=== PATIENT | female | born 1980 | race Caucasian/White ===

== ENCOUNTER 2019-01-01 00:23 | Emergency (ER) | payer MEDICAID ==
[~2019-01-01] VITALS: Ht 167.6 cm; Wt 102.7 kg
[2019-01-01 00:25] VITALS: BP 145/75
--- NOTE | 2019-01-01 00:56 | NUR ---
pt ambulates from lobby to room with steady gait.
[2019-01-01] MEDS ORDERED: HYDROcodone/APAP 10/325 MG TABLET ONE (01:17)
[2019-01-01] MEDS ORDERED: HYDROcodone/APAP 10/325 MG TABLET PO ONE (01:30)
[2019-01-01] MEDS ORDERED: ACYCLOVIR 800 MG TABLET PO SCH (01:30)
--- NOTE | 2019-01-01 01:41 | NUR ---
pt d/c with d/c summary and scripts. all questions answered. pt signed narcotic sheet which was placed with chart. pt denies any other needs pertaining to this visit and ambulates to registration desk with steady gait for d/c home with family.
== END 2019-01-01 01:44 | disposition home or self-care (01) ==
LOC: ED 01:41
DX: B02.9 Zoster without complications (principal)
CPT/HCPCS: 99283

== ENCOUNTER 2019-01-27 20:19 | Emergency (ER) | payer SELFPAY ==
[~2019-01-27] VITALS: Ht 165.1 cm; Wt 97.0 kg
[2019-01-27 21:45] VITALS: BP 125/70
[2019-01-27 22:04] LABS: BASOPHILS # (AUTO) 0.04 x10^3/uL (0-0.1); BASOPHILS % (AUTO) 0 % (0-1); EOSINOPHILS % (AUTO) 3 % (1-7); LYMPHOCYTES # (AUTO) 2.42 x10^3/uL (1-3.4); LYMPHOCYTES % (AUTO) 25 % (22-44); MD NO; MEAN CORPUSCULAR HGB CONC 33.8 g/dL (32.4-35.8); MEAN CORPUSCULAR VOLUME 94.5 fL (80-100); MEAN PLATELET VOLUME 9.1 fL (7.4-10.4); MONOCYTES # (AUTO) 0.46 x10^3/uL (0.2-0.8); MONOCYTES % (AUTO) 5 % (2-9); NEUTROPHILS # (AUTO) 6.52 x10^3/uL (1.8-6.8); NEUTROPHILS % (AUTO) 67 % (42-75); PLATELET COUNT 290 x10^3/uL (130-400); RED BLOOD COUNT 4.15 x10^6/uL (3.82-5.3); RED CELL DISTRIBUTION WIDTH 13.3 % (9.6-15.2)
[2019-01-27 22:17] LABS: ALANINE AMINOTRANSFERASE 65 U/L (12-78); ALBUMIN 3.8 g/dL (3.4-5.0); ANION GAP 7 mmol/L (5-15); CALCIUM 9.1 mg/dL (8.5-10.1); CHLORIDE 106 mmol/L (98-107); CREATININE 0.67 mg/dL (0.55-1.02)
[2019-01-27 22:19] LABS: ALKALINE PHOSPHATASE 65 U/L (45-117); BILIRUBIN,TOTAL 0.6 mg/dL (0.2-1.0); TOTAL PROTEIN 7.1 g/dL (6.4-8.2)
== END 2019-01-27 22:47 | disposition home or self-care (01) ==
LOC: ED 21:20
DX: F41.1 Generalized anxiety disorder (principal); Z88.0 Allergy status to penicillin
CPT/HCPCS: 36415; 80053; 83605; 85025; 99283

== ENCOUNTER 2019-01-31 05:28 | Emergency (ER) | payer SELFPAY ==
[~2019-01-31] VITALS: Ht 165.1 cm; Wt 108.5 kg
[2019-01-31 05:29] VITALS: BP 130/74
[2019-01-31] MEDS ORDERED: LIDOCAINE-MPF 1%, 5ML ONE (06:12)
[2019-01-31] MEDS ORDERED: HYDROcodone/APAP 5/325 TABLET PO ONE (06:30)
[2019-01-31] MEDS ORDERED: LIDOCAINE-MPF 1%, 5ML INFIL ONE (06:30)
[2019-01-31] MEDS ORDERED: HYDROcodone/APAP 5/325 TABLET ONE (06:35)
--- NOTE | 2019-01-31 06:38 | NUR ---
I&D COMPLETED BY PA. EVERETT PT. MEDICATED PER SEP FOR PAIN.
== END 2019-01-31 06:45 | disposition home or self-care (01) ==
LOC: ED 06:39
DX: L02.412 Cutaneous abscess of left axilla (principal); G89.29 Other chronic pain; M54.9 Dorsalgia, unspecified
CPT/HCPCS: 10060; 99283